=== PATIENT | female | born 1970 | race Caucasian/White ===

== ENCOUNTER 2017-03-13 19:34 | Emergency (ER) | payer BC ==
[~2017-03-13] VITALS: Ht 170.2 cm; Wt 76.0 kg
[~2017-03-13 19:34] MED LIST: ACET1TAB40 PO; CEPH-443 PO; CIPR500T4 PO; CYCL-319 PO; IBUP-1542 PO; NAPR-260 PO; PHEN-537 PO
[2017-03-13 19:37] VITALS: Ht 170.2 cm; Wt 76.0 kg
[2017-03-13 20:33] LABS: URINE BLOOD (Dip) POC 2+ (NEGATIVE)
[2017-03-13] MEDS ORDERED: LIDOCAINE/MYLANTA 40 ML BTL PO ONE (21:00)
[2017-03-13] MEDS ORDERED: ACETAMINOPHEN 325 MG TAB PO ONE (21:00)
[2017-03-13 21:37] LABS: ADD UMIC YES; URINE BILIRUBIN (Dip) NEGATIVE (NEGATIVE); URINE BLOOD (Dip) 2+ (NEGATIVE); URINE COLOR LT. YELLOW (YELLOW); URINE GLUCOSE (Dip) NEGATIVE (NEGATIVE); URINE KETONES (Dip) NEGATIVE (NEGATIVE); URINE LEUKOCYTE ESTERASE (Dip) 1+ (NEGATIVE); URINE NITRITE (Dip) NEGATIVE (NEGATIVE); URINE TOTAL PROTEIN (Dip) NEGATIVE (NEGATIVE); URINE UROBILINOGEN (Dip) 0.2 E.U./dL (0.1-1.0)
[2017-03-13 21:51] LABS: BACTERIA,URINE FEW; SQUAMOUS EPITHELIAL CELL,UR MODERATE
--- NOTE | 2017-03-13 22:04 | ERD ---
ER Documentation Chief Complaint Date/Time DATE: 03/13/17 TIME: 21:55 Chief Complaint LLQ pain for 2 days denies N/V/D and constipation HPI This 46-year-old female comes in to emergency department today with left lower quadrant pain. Patient denies any associated symptoms with pain. Denies nausea , vomiting, fever, chills, dysuria. Patient reports total hysterectomy with bilateral salpingo-oophorectomy years ago. She reports normal bowel movements. Denies ever having pain like this in the past, denies history of diverticulitis, diverticulosis. Has never been followed by gastroenterology. ROS All systems reviewed and are negative except as per history of present illness. Medications Home Meds Active Scripts Cyclobenzaprine Hcl* (Cyclobenzaprine Hcl*) 10 Mg Tablet, 10 MG PO TID, #15 TAB Prov:MIKE JOHNSON PA-C 11/10/16 Naproxen* (Naprosyn*) 500 Mg Tablet, 500 MG PO BID Y for PAIN AND/OR INFLAMMATION, #30 TAB Prov:MIKE JOHNSON PA-C 11/10/16 Ibuprofen* (Motrin*) 600 Mg Tab, 600 MG PO Q6H Y for PAIN AND OR ELEVATED TEMP, #30 TAB Prov:TERE DONG NP 10/23/16 Phenazopyridine Hcl* (Pyridium*) 100 Mg Tab, 100 MG PO TID Y for URINARY PAIN, # 6 TAB Prov:MACARIO HANNAH DO 04/13/16 Ciprofloxacin Hcl* (Ciprofloxacin Hcl*) 500 Mg Tablet, 500 MG PO BID for 7 Days , TAB Prov:IZAIAH HANNAHRAM DO 04/13/16 Ciprofloxacin Hcl* (Ciprofloxacin Hcl*) 500 Mg Tablet, 500 MG PO BID for 7 Days , TAB Prov:JUAN RUIZ PA-C 06/21/15 Acetaminophen-Codeine* (Acetaminophen-Cod #3*) 300-30 Mg Tab, 1 TAB PO Q4H Y for PAIN LEVEL 6-10, #15 TAB Prov:CHO,SILVESTRE 06/14/15 Ibuprofen* (Motrin*) 600 Mg Tab, 600 MG PO Q6, #15 TAB Prov:CHO,SILVESTRE 06/14/15 Cephalexin* (Keflex*) 500 Mg Capsule, 500 MG PO QID for 7 Days, CAP Prov:MIKE CALLA 06/14/15 Allergies Allergies: Coded Allergies: No Known Allergy (Unverified , 04/13/16) PMhx/Soc History of Surgery: Yes (HYSTERECTOMY) Anesthesia Reaction: No Hx Neurological Disorder: No Hx Respiratory Disorders: No Hx Cardiac Disorders: No Hx Psychiatric Problems: No Hx Miscellaneous Medical Probl: No (DENIES MEDICAL HX) Hx Alcohol Use: No Hx Substance Use: No Hx Tobacco Use: No Physical Exam Vitals Vital Signs Date Time Temp Pulse Resp B/P Pulse Ox O2 Delivery O2 Flow Rate FiO2 03/13/17 19:37 98.2 89 16 135/75 98 Vitals stable, triage notes reviewed Physical Exam Const: [] Head: Atraumatic Eyes: Normal Conjunctiva ENT: Normal External Ears, Nose and Mouth. Neck: Full range of motion..~ No meningismus. Resp: Clear to auscultation bilaterally Cardio: Regular rate and rhythm, no murmurs Abd: Soft, non tender, non distended. Normal bowel sounds Skin: No petechiae or rashes Back: No midline or flank tenderness Ext: No cyanosis, or edema Neur: Awake and alert Psych: Normal Mood and Affect Results 24 hrs Laboratory Tests Test 03/13/17 20:22 03/13/17 20:33 Urine Color LT. YELLOW Urine Clarity SL HAZY Urine pH 6.0 Urine Specific [place] >=1.030 Urine Ketones NEGATIVE Urine Nitrite NEGATIVE Urine Bilirubin NEGATIVE Urine Urobilinogen 0.2 E.U./dL Urine Leukocyte Esterase 1+ Urine Microscopic RBC 2-5/HPF Urine Microscopic WBC 10-25/HPF Urine Squamous Epithelial Cells MODERATE Urine Calcium Oxalate Crystals MANY Urine Bacteria FEW Urine Hemoglobin 2+ Urine Glucose NEGATIVE% Urine Total Protein NEGATIVE Bedside Urine pH (LAB) 5.5 Bedside Urine Protein (LAB) Trace Bedside Urine Glucose (UA) Negative Bedside Urine Ketones (LAB) Negative Bedside Urine Blood 2+ Bedside Urine Nitrite (LAB) Negative Bedside Urine Leukocyte Esterase (L 1+ Current Medications Medications (Trade) Dose Ordered Sig/[place] Route PRN Reason Start Time Stop Time Status Last Admin Dose Admin Miscellaneous Medication (Gi Cocktail (2)) 40 ml ONCE ONCE PO 03/13/17 21:00 03/13/17 21:01 DC 03/13/17 20:51 Acetaminophen (Tylenol Tab) 650 mg ONCE ONCE PO 03/13/17 21:00 03/13/17 21:01 DC 03/13/17 20:51 Leukocytes seen on urinalysis with microscopic hematuria, no nitrates. Findings suspicious for urinary tract infection Procedures/MDM This pleasant 46-year-old female presents to emergency department with left- sided abdominal pain. Pain is nonradiating, without associated nausea vomiting fever or chills, patient denies dysuria or back pain. Urinalysis highly suspicious for urinary tract infection. Patient receives GI cocktail with effective pain relief. Diverticulitis/diverticulosis is not suspected at this time. Nephrolithiasis is unlikely. Ovarian cyst is not possible. Patient has had surgical removal of ovaries. I have decided to treat patient for urinary tract infection and Zantac daily I feel patient is appropriate for outpatient management and follow-up with primary care physician. Increase water, fiber, and activity. I feel the patient is stable for discharge at this time. I have discussed results, examination findings, the treatment plan with the patient and family present prior to discharge. Indications for emergent reevaluation, side effects of medication were also discussed. All questions were answered. Patient verbalizes understanding and agrees with plan of care. Departure Diagnosis: Primary Impression: Urinary tract infection Urinary tract infection type: acute cystitis Hematuria presence: with hematuria Qualified Code: N30.01 - Acute cystitis with hematuria Additional Impression: Gastritis Gastritis type: unspecified gastritis Chronicity: acute Gastritis bleeding : without bleeding Qualified Code: K29.00 - Acute gastritis without hemorrhage, unspecified gastritis type Condition: Good Patient Instructions: Understanding Urinary Tract Infections (UTIs) [facility] Additional Instructions: Thank you for for coming to [facility] for your care today. Please ask your nurse or provider if you have questions about your care today and do not leave until all your questions have been answered. Please use any medications given as directed and follow-up with your doctor (or the doctor you were referred to) in the next 2-3 days. If you do not have a primary care doctor you may [place] [facility] [place] You may also use motrin and tylenol as needed for fever and/or pain unless instructed otherwise by your provider or nurse. Indications for more urgent follow-up have been discussed, but you may return to the Emergency Department at ANY time for any worrisome or worsening symptoms. If you have abdominal pain, please know that no test or exam you received is perfect and you should follow up within 8 hours for continued pain. If you had any imaging studies today, such as an X-Ray or CT Scan, these studies will be reviewed later by a radiologist. You will be called if there are important findings that were not identified today, so make sure the contact information you provided at registration is correct. If you received any narcotic pain control medicine today, such as Vicodin, Morphine or Dilaudid, your coordination and judgment may be affected for a number of hours. Please do not drive or operate heavy machinery, and you may want someone to assist you at home. If you were given a prescription for narcotic medication, be aware that it is very addictive- use sparingly and only if necessary. TRACIE GOTTLIEB Mar 13, 2017 22:04
[2017-03-13] MEDS ORDERED: CEPH-443 PO (22:06)
[2017-03-13] MEDS ORDERED: RANI150T9 PO ×2 (22:06→22:07)
== END 2017-03-13 22:28 | disposition home or self-care (01) ==
LOC: FTE 19:34
DX: N30.01 Acute cystitis with hematuria (principal); K29.00 Acute gastritis without bleeding
CPT/HCPCS: 81001; Z7610; 81003; 99283

== ENCOUNTER 2017-10-27 10:09 | Emergency (ER) | payer BC ==
[~2017-10-27] VITALS: Ht 157.5 cm; Wt 78.0 kg
[~2017-10-27 10:09] MED LIST changes: +RANI150T9 PO
[2017-10-27 10:12] VITALS: Ht 157.5 cm; Wt 78.0 kg
--- NOTE | 2017-10-27 10:52 | ERD ---
ER Documentation Chief Complaint Chief Complaint FLU LIKE SYMPTOMS WITH [facility] JENNY HELMS 47-year-old female complains of a headache, sore throat and congestion for the past 1 day. She reports that she is spitting up yellow colored sputum, and pus. She reports sore throat worse on the left side but no difficulty handling her secretions or voice changes. She reports tactile fevers and is taking ibuprofen at home. Patient denies history of cough. ROS All systems reviewed and are negative except as per history of present illness. Medications Home Meds Active Scripts Cetirizine Hcl* (Zyrtec*) 10 Mg Capsule, 10 MG PO DAILY, #10 TAB.CHEW Prov:RYAN CAMERON PA-C 10/27/17 Fluticasone Propionate* (Fluticasone Propionate* Nasal) 50 Mcg/[place]ug[place] - 16 Gm [place].susp, 1 SPRAY NASAL BID, #1 BOTTLE TO EACH NOSTRIL Prov:RYAN CAMERON PA-C 10/27/17 Ibuprofen* (Motrin*) 600 Mg Tab, 600 MG PO Q6, #30 TAB Prov:RYAN CAMERON PA-C 10/27/17 Ranitidine Hcl* (Zantac*) 150 Mg Tablet, 150 MG PO DAILY Y for gasrtitis, #30 TAB Prov:BULL,TRACIE 03/13/17 Cephalexin* (Keflex*) 500 Mg Capsule, 500 MG PO TID for 7 Days, CAP Prov:BULL,TRACIE 03/13/17 Cyclobenzaprine Hcl* (Cyclobenzaprine Hcl*) 10 Mg Tablet, 10 MG PO TID, #15 TAB Prov:MIKE JOHNSON PA-C 11/10/16 Naproxen* (Naprosyn*) 500 Mg Tablet, 500 MG PO BID Y for PAIN AND/OR INFLAMMATION, #30 TAB Prov:MIKE JOHNSON PA-C 11/10/16 Ibuprofen* (Motrin*) 600 Mg Tab, 600 MG PO Q6H Y for PAIN AND OR ELEVATED TEMP, #30 TAB Prov:TERE DONG NP 10/23/16 Phenazopyridine Hcl* (Pyridium*) 100 Mg Tab, 100 MG PO TID Y for URINARY PAIN, # 6 TAB Prov:MACARIO HANNAH DO 04/13/16 Ciprofloxacin Hcl* (Ciprofloxacin Hcl*) 500 Mg Tablet, 500 MG PO BID for 7 Days , TAB Prov:MACARIO HANNAH DO 04/13/16 Ciprofloxacin Hcl* (Ciprofloxacin Hcl*) 500 Mg Tablet, 500 MG PO BID for 7 Days , TAB Prov:JUAN RUIZ PA-C 06/21/15 Acetaminophen-Codeine* (Acetaminophen-Cod #3*) 300-30 Mg Tab, 1 TAB PO Q4H Y for PAIN LEVEL 6-10, #15 TAB Prov:CHO,SILVESTRE 06/14/15 Ibuprofen* (Motrin*) 600 Mg Tab, 600 MG PO Q6, #15 TAB Prov:CHO,SILVETSRE 06/14/15 Cephalexin* (Keflex*) 500 Mg Capsule, 500 MG PO QID for 7 Days, CAP Prov:CHO,SILVESTRE 06/14/15 Allergies Allergies: Coded Allergies: No Known Allergy (Unverified , 10/27/17) PMhx/Soc History of Surgery: Yes (HYSTERECTOMY) Anesthesia Reaction: No Hx Neurological Disorder: No Hx Respiratory Disorders: No Hx Cardiac Disorders: No Hx Psychiatric Problems: No Hx Miscellaneous Medical Probl: No (DENIES MEDICAL HX) Hx Alcohol Use: No Hx Substance Use: No Hx Tobacco Use: No Smoking Status: Never smoker Physical Exam Vitals Vital Signs Date Time Temp Pulse Resp B/P Pulse Ox O2 Delivery O2 Flow Rate FiO2 10/27/17 10:12 97.6 95 18 140/78 99 Physical Exam General: Well-developed, well-nourished. The patient appears in no acute distress. HEENT: Head is normocephalic, atraumatic. No scleral icterus. TMs are normal, there is exudate to the left tonsil, uvula midline, no abscess, no stridor, no trismus. Neck: Supple. Nontender. The anterior chain cervical lymphadenopathy present. Lungs: Clear to auscultation. Normal air movement. Heart: Regular rate and rhythm. S1 and S2 are normal. No murmurs, gallops, or rubs. Abdomen: Nondistended. Extremities: No clubbing or cyanosis. Moving extremities x 4. No weakness. Neurologic: Alert and oriented 3. No focal deficits. Normal speech and gait. Skin: Normal turgor. No rash or lesions. Procedures/MDM ED course: Rapid strep: Negative Medical decision makin-year-old female presents with exudate to her left tonsil, history of fever, positive cervical lymphadenopathy, and congestion. Patient's rapid strep is negative. The patient is a most consistent with a viral illness. The patient's rapid strep was negative, and she will be treated for viral pharyngitis. No Signs of any deep space infection, retropharyngeal abscess. Departure Diagnosis: Primary Impression: Pharyngitis Condition: Good RYAN CAMERON PA-C Oct 27, 2017 10:52
[2017-10-27] MEDS ORDERED: IBUP-1542 PO (11:22)
[2017-10-27] MEDS ORDERED: CETI10CA PO (11:22)
[2017-10-27] MEDS ORDERED: FLUT16SP17 NASAL (11:22)
== END 2017-10-27 11:37 | disposition home or self-care (01) ==
LOC: FTE 10:09
DX: J02.9 Acute pharyngitis, unspecified (principal)
CPT/HCPCS: 87880; Z7502; 99283